=== PATIENT | male | born 1970 | race Caucasian/White ===

== ENCOUNTER 2023-03-09 09:33 | Emergency (ER) | payer MEDICARE ==
[2023-03-09] MEDS ORDERED: Sodium Chloride 0.9% 10 ML Syringe FLUSH PRN (09:59)
[2023-03-09] MEDS ORDERED: Ondansetron 4 MG/2 ML SDV IVPUSH ONE (10:01)
[2023-03-09] MEDS ORDERED: Sodium Chloride 0.9% 1,000 ML IV ONE (10:01)
[2023-03-09] MEDS ORDERED: Iopamidol 755 MG/ML 50 ML Bottle IVPUSH ONE ×2 (10:04)
[2023-03-09 10:33] LABS: BASOPHILS ABSOLUTE AUTO 0.02 K/mm3 (0.01-0.08); BASOPHILS PERCENT AUTO 0.4 % (0.1-1.2); EOSINOPHILS ABSOLUTE AUTO 0.01 K/mm3 (0.04-0.54); EOSINOPHILS PERCENT AUTO 0.2 (0.8-7.0); HEMOGLOBIN 15.2 gm/dl (13.7-17.5); IMMATURE GRAN ABSOLUTE AUTO 0.02 K/mm3 (0.00-0.10); IMMATURE GRAN PERCENT AUTO 0.4 % (<=1.0); LYMPHOCYTES ABSOLUTE AUTO 1.22 K/mm3 (1.32-3.57); LYMPHOCYTES PERCENT AUTO 21.7 % (21.8-53.1); MEAN CORPUSCULAR HEMOGLOBIN 33.2 pg (25.7-32.2); MEAN CORPUSCULAR HGB CONC 34.5 g/dl (32.2-35.5); MEAN CORPUSCULAR VOLUME 96.1 fl (79.0-92.2); MONOCYTES ABSOLUTE AUTO 0.42 K/mm3 (0.30-0.82); MONOCYTES PERCENT AUTO 7.5 % (5.3-12.2); NEUTROPHILS ABSOLUTE AUTO 3.94 K/mm3 (1.78-5.38); NEUTROPHILS PERCENT AUTO 69.8 % (34.0-67.9); PLATELET COUNT,PLT 202 K/mm3 (163-337); RED BLOOD CELL COUNT 4.58 M/mm3 (4.63-6.08); WHITE BLOOD CELL COUNT,WBC 5.63 K/mm3 (4.23-9.07)
[2023-03-09 10:44] LABS: ALBUMIN 4.2 g/dl (3.4-5.0); BILIRUBIN TOTAL 0.8 mg/dL (0.2-1.0); BUN/CREATININE RATIO 4.2 (14-18); CALCIUM 11.1 mg/dL (8.5-10.1); CREATININE 1.2 mg/dL (0.7-1.3); EST CRCL DRUG DOSING (CG) 77.24 mL/min; PROTEIN TOTAL,TP 8.4 g/dl (6.4-8.2)
[2023-03-09] MEDS ORDERED: Ketorolac 30 MG/ML SDV IVPUSH ONE (11:17)
[2023-03-09] MEDS ORDERED: Loperamide 2 MG Cap PO ONE (11:25)
[2023-03-09] MEDS ORDERED: Potassium Chloride 20 MEQ Tab.ER PO ONE (11:25)
[2023-03-09 13:09] LABS: APPEARANCE,URINE SLT CLOUDY (Clear); BILIRUBIN,URINE NEGATIVE (Negative); COLOR,URINE YELLOW (Yellow); GLUCOSE,URINE NEGATIVE (Negative); KETONES,URINE NEGATIVE (Negative); LEUKOCYTE ESTERASE,URINE NEGATIVE (Negative); NITRITE,URINE NEGATIVE (Negative); OCCULT BLOOD,URINE TRACE-LYSED (Negative); PH,URINE 8.5 (5.0-8.0); PROTEIN,URINE 1+ (Negative); UROBILINOGEN,URINE 0.2 (0.2-1.0)
[2023-03-09 13:18] LABS: AMORPHOUS SEDIMENT,URINE MODERATE /hpf (NOT SEEN); BACTERIA,URINE FEW /hpf (FEW); EPITHELIAL CELLS,URINE 0-5 /hpf (0-5); MUCUS,URINE FEW /hpf (FEW); WBC,URINE 0-5 /hpf (0-5)
== END 2023-03-09 13:32 | disposition home or self-care (01) ==
LOC: JD.ED 09:33
DX: K52.9 Noninfective gastroenteritis and colitis, unspecified (principal)
CPT/HCPCS: 36415; 74177; 74177-26; 80053; 81001; 85025; 93005; 96361; 96374; 96375; 99284; 99285-25; A9270-GY; J1885; J2405; J3490; J7030; Q9967